=== PATIENT | female | born 1995 | race Caucasian/White ===

== ENCOUNTER 2017-04-08 17:47 | Emergency (ER) | payer MEDICAID, OTHER ==
[~2017-04-08] VITALS: Ht 162.6 cm; Wt 202.0 kg
[2017-04-08] MEDS ORDERED: ACETAMINOPHEN 325MG TABLET ONE (18:43)
[2017-04-08] MEDS ORDERED: KETOROLAC 15MG/ML VIAL IM ONE (20:45)
[2017-04-08] MEDS ORDERED: DEXAMETHASONE 10 MG/ML VIAL IM ONE (20:45)
[2017-04-08 20:48] VITALS: BP 128/84
== END 2017-04-08 21:17 | disposition home or self-care (01) ==
LOC: ER 17:47
DX: J02.9 Acute pharyngitis, unspecified (principal); R03.0 Elevated blood-pressure reading, without diagnosis of hypertension
CPT/HCPCS: 99283

== ENCOUNTER 2017-04-10 16:25 | Emergency (ER) | payer OTHER ==
[~2017-04-10] VITALS: Ht 162.6 cm; Wt 200.0 kg
[2017-04-10 16:29] VITALS: BP 145/74
== END 2017-04-10 19:45 | disposition home or self-care (01) ==
LOC: ER 19:32
DX: L27.0 Generalized skin eruption due to drugs and medicaments taken internally (principal); J03.90 Acute tonsillitis, unspecified
CPT/HCPCS: 99283

== ENCOUNTER 2017-06-13 16:37 | Emergency (ER) | payer OTHER ==
[~2017-06-13] VITALS: Ht 160 cm; Wt 88.0 kg
[2017-06-13 16:44] VITALS: BP 130/70
== END 2017-06-13 20:15 | disposition left against medical advice (07) ==
LOC: ER 16:37
DX: R03.0 Elevated blood-pressure reading, without diagnosis of hypertension (principal); Z53.21 Procedure and treatment not carried out due to patient leaving prior to being seen by health care provider

== ENCOUNTER 2020-08-13 22:03 | Emergency (ER) | payer OTHER ==
[~2020-08-13] VITALS: Ht 162.6 cm; Wt 98.0 kg
[2020-08-14] MEDS ORDERED: ALBUTEROL (0.083%) 2.5MG/3ML NEB HHN STA (00:30)
[2020-08-14 00:54] LABS: BASOPHILS % 0.4 % (0.0-2.0); EOSINOPHILS % 6.6 % (0.0-5.0); HEMOGLOBIN. 14.9 g/dL (12.0-16.0); LYMPHOCYTES % 24.5 % (20.0-50.0); MEAN CORPUSCULAR HEMOGLOBIN 29.9 pg (28.0-32.0); MEAN CORPUSCULAR VOLUME 88.5 fL (81.0-99.0); MONOCYTES % 8.4 % (2.0-8.0); NEUTROPHILS % 60.1 % (40.0-76.0); PLATELET 164 x1000/uL (130-400); RED BLOOD CELL COUNT 4.97 mill/uL (4.2-5.4)
[2020-08-14 00:57] LABS: CHLORIDE 107 mEq/L (98-107)
[2020-08-14] MEDS ORDERED: ALBU6.7H9 INH (01:55)
[2020-08-14 02:00] VITALS: BP 136/83
== END 2020-08-14 02:20 | disposition home or self-care (01) ==
LOC: ER 22:03
DX: J20.9 Acute bronchitis, unspecified (principal)
CPT/HCPCS: 36415; 71045; 80053; 81025; 85025; 93005; 94640; 99285; Z7610

== ENCOUNTER 2021-10-04 11:11 | Emergency (ER) | payer MEDICAID, OTHER ==
[~2021-10-04] VITALS: Ht 162.6 cm; Wt 84.0 kg
[~2021-10-04 11:11] MED LIST: ACET-2708 MT; ALBU6.7H9 INH; NAPR-1176 MT
[2021-10-04] MEDS ORDERED: IBUP-2030 MT (12:10)
[2021-10-04] MEDS ORDERED: CIPHCO RIGHT EAR (12:10)
[2021-10-04] MEDS ORDERED: AMOX1TAB16 MT (12:10)
[2021-10-04] MEDS ORDERED: IBUPROFEN 800MG TABLET PO ONE (12:15)
[2021-10-04 12:34] VITALS: BP 132/73
== END 2021-10-04 12:37 | disposition home or self-care (01) ==
LOC: ER 11:11
DX: H92.01 Otalgia, right ear (principal); H66.91 Otitis media, unspecified, right ear; J45.909 Unspecified asthma, uncomplicated; Z86.16 Personal history of COVID-19
CPT/HCPCS: 99282; 99283

== ENCOUNTER 2022-01-11 20:54 | Emergency (ER) | payer OTHER ==
[~2022-01-11] VITALS: Ht 162.6 cm; Wt 82.0 kg
[~2022-01-11 20:54] MED LIST changes: +ALBU6.7H3 INH; -ALBU6.7H9 INH; +AMOX1TAB16 MT; +CIPHCO RIGHT EAR; +IBUP-2030 MT
[2022-01-11 21:21] VITALS: BP 140/89
[2022-01-12] MEDS ORDERED: IBUPROFEN 800MG TABLET PO ONE (00:30)
[2022-01-12] MEDS ORDERED: IBUP-2029 MT (01:25)
== END 2022-01-12 01:30 | disposition home or self-care (01) ==
LOC: ER 20:54
DX: S40.022A Contusion of left upper arm, initial encounter (principal); S00.432A Contusion of left ear, initial encounter; V49.49XA Driver injured in collision with other motor vehicles in traffic accident, initial encounter; Y93.89 Activity, other specified; Y92.89 Other specified places as the place of occurrence of the external cause; Y99.8 Other external cause status; Z79.899 Other long term (current) drug therapy; J45.909 Unspecified asthma, uncomplicated
CPT/HCPCS: 73090; 73110; 81025; 99284

== ENCOUNTER 2023-03-03 13:54 | Emergency (ER) | payer MEDICAID, OTHER ==
[~2023-03-03] VITALS: Ht 162.6 cm; Wt 108.0 kg
[~2023-03-03 13:54] MED LIST changes: +IBUP-2029 MT
[2023-03-03 13:56] VITALS: O2SAT 96
[2023-03-03] MEDS ORDERED: SODIUM CHLORIDE 0.9% 1,000 ML IV ONE (14:30)
[2023-03-03] MEDS ORDERED: ONDANSETRON HCL 4MG/2ML INJ IV ONE (14:30)
[2023-03-03 14:43] LABS: BASOPHILS % 0.1 % (0.0-2.0); EOSINOPHILS % 0.9 % (0.0-5.0); HEMATOCRIT. 36.7 % (36.0-48.0); HEMOGLOBIN. 11.9 g/dL (12.0-16.0); LYMPHOCYTES % 8.3 % (20.0-50.0); MEAN CORPUSCULAR HEMOGLOBIN 29.4 pg (28.0-32.0); MEAN CORPUSCULAR HGB CONC 32.3 g/dL (31.0-37.0); MEAN CORPUSCULAR VOLUME 91.1 fL (81.0-99.0); MEAN PLATELET VOLUME 11.4 fl (7.4-10.4); MONOCYTES % 4.7 % (2.0-8.0); PLATELET 164 x1000/uL (130-400); RED BLOOD CELL COUNT 4.03 mill/uL (4.2-5.4); RED CELL DISTRIBUTION WIDTH 13.7 % (11.6-14.6); WHITE BLOOD COUNT 13.4 x1000/uL (4.5-11.0)
[2023-03-03 14:53] LABS: CLARITY URINE CLOUDY (CLEAR); COLOR URINE YELLOW (YELLOW); GLUCOSE URINE NEGATIVE (NEGATIVE); KETONES URINE 2+ (NEGATIVE); LEUKOCYTE ESTERASE URINE NEGATIVE (NEGATIVE); NITRITE URINE POSITIVE (NEGATIVE); OCCULT BLOOD URINE NEGATIVE (NEGATIVE); PH URINE 6.5 (4.5-8.0); PROTEIN URINE 1+ (NEGATIVE); SPECIFIC GRAVITY URINE 1.024 (1.005-1.030)
[2023-03-03 14:55] LABS: ALANINE AMINOTRANSFERASE 26 IU/L (10-49); ALBUMIN 3.5 g/dL (3.2-4.8); BILIRUBIN TOTAL 0.3 mg/dL (0.1-1.0); CALCIUM 8.7 mg/dL (8.7-10.4); CARBON DIOXIDE 21 mEq/L (21-32); CHLORIDE 108 mEq/L (98-107); CREATININE 0.4 mg/dL (0.6-1.0); GLUCOSE 80 mg/dL (70-105); POTASSIUM 3.7 mEq/L (3.5-5.1); PROTEIN TOTAL 6.6 g/dL (6.0-8.3); SODIUM 137 mEq/L (136-145); UREA NITROGEN BLOOD 7 mg/dL (9-23)
[2023-03-03] MEDS ORDERED: ACETAMINOPHEN 325MG TABLET PO ONE (15:00)
[2023-03-03 15:02] LABS: SQUAMOUS EPITHELIAL CELL URINE 2+ /lpf (RARE/1+)
[2023-03-03 15:03] LABS: BACTERIA URINE 2+; RBC URINE 0-2 /hpf (0-2)
[2023-03-03 15:04] LABS: WBC URINE 0-2 /hpf (0-2)
[2023-03-03 15:09] LABS: ASPARTATE AMINOTRANSFERASE < 8 IU/L (<34)
[2023-03-03] MEDS ORDERED: CEPHALEXIN 250MG CAPSULE PO ONE (15:30)
[2023-03-03] MEDS ORDERED: TOPUD MT (18:37)
[2023-03-03] MEDS ORDERED: CEPH500C2 MT (18:37)
[2023-03-03 18:46] VITALS: BP 128/76; PULSE 99; RESP 16; TEMP 98.1
== END 2023-03-03 18:48 | disposition home or self-care (01) ==
LOC: ER 13:54
DX: O23.33 Infections of other parts of urinary tract in pregnancy, third trimester (principal); Z3A.36 36 weeks gestation of pregnancy; Z20.822 Contact with and (suspected) exposure to COVID-19
CPT/HCPCS: 99285; 72195; 96374; 96361; 87426; 80053; 81003; 84702; 83690; 85025; 86850; 86900; 86901; 36415; 76815; 74181; J2405; J7030; C9803